=== PATIENT | male | born 1970 | race Caucasian/White ===

== ENCOUNTER 2016-10-10 14:06 | Emergency (ER) | payer SELFPAY ==
[~2016-10-10] VITALS: Ht 180.3 cm; Wt 82.0 kg
[~2016-10-10 14:06] MED LIST: ALBU17I INH; CEFT500T PO; PRED10PA PO; ZITH500T PO
[2016-10-10 14:07] VITALS: BP 134/86; PULSE 87; RESP 16; TEMP 98.7; O2SAT 96
--- NOTE | 2016-10-10 14:12 | PD ---
Physical Exam Date Seen by Provider: Oct 10, 2016 Time Seen by Provider: 14:11 Narrative 46 yo male here for upper back pain. Has had this since heavy lifting. Pain is 10/10. Went to [facility] and pain no improvement. Taking Valium and Tramadol. No new injury. Vitals are stable in triage. Awaiting bed placement. Data Data Last Documented VS Vital Signs Date Time Temp Pulse Resp B/P (MAP) Pulse Ox O2 Delivery O2 Flow Rate FiO2 10/10/16 14:07 98.7 87 16 134/86 (102) 96 MDM Medical Record Reviewed: Yes Supervised Visit with EDUARDO: No Nick Florian Oct 10, 2016 14:12
[2016-10-10] MEDS ORDERED: KETOROLAC TROMETHAMINE 60 MG/2 ML (IM) VIAL IM ONE (17:30)
[2016-10-10] MEDS ORDERED: predniSONE 20 MG TAB PO ONE (17:30)
[2016-10-10] MEDS ORDERED: PRED20 PO (17:43)
[2016-10-10] MEDS ORDERED: HYDR-3533 PO (17:43)
[2016-10-10] MEDS ORDERED: CYCL1TAB29 PO (17:43)
--- NOTE | 2016-10-10 17:51 | PD ---
HPI Chief Complaint: Back/ Neck Pain or Injury Time Seen by Provider: 17:13 Travel History International Travel<30 days: No Contact w/Intl Traveler<30days: No Traveled to known affect area: No History of Present Illness HPI 46-year-old male presents to the emergency Department with reported injury to the lower thoracic spine secondary to lifting something heavy last week 6 days ago. Patient states he tried to work through it but reinjured it over the weekend moving a sofa. He then missed work on Saturday secondary to the pain and then was seen at [facility] in [place], and had x-rays and placed on Valium and Ultram with worsening symptoms with pain spreading from the lower thoracic into the lumbar region. Patient denies numbness, tingling, or weakness in the lower extremities. Patient has no known drug allergies. PFSH Past Medical History Asthma: Yes Anxiety: Yes Cancer: No Cardiovascular Problems: No Endocrine: No Immune Disorder: No Musculoskeletal: Yes Neurologic: Yes Psychiatric: Yes Respiratory: Yes Social History Alcohol Use: Yes Tobacco Use: Yes Substance Use: Yes Allergies-Medications (Allergen,Severity, Reaction): Coded Allergies: No Known Allergies (Verified , 10/10/16) Reported Meds & Prescriptions Reported Meds & Active Scripts Active Flexeril (Cyclobenzaprine HCl) 10 Mg Tab 10 Mg PO TID Lortab (Hydrocodone-Acetaminophen) 5-325 Mg Tab 1 Tab PO Q6H PRN Prednisone 20 Mg Tab 20 Mg PO BID 7 Days Reported Prednisone 10 Mg Anders 20 Mg PO DAILY 3 Days 20mg daily x 3 days, then 10mg daily x 3 days Proventil Mdi (Albuterol Sulfate) 17 Gm Aero 2 Puff INH Q4HPRN Ceftin (Cefuroxime Axetil) 500 Mg Tab 500 Mg PO BID Zithromax (Azithromycin) 500 Mg Tab 500 Mg PO DAILY 5 Days Review of Systems Except as stated in HPI: all other systems reviewed are Neg General / Constitutional: No: Fever Eyes: No: Visual changes HENT: No: Headaches Cardiovascular: No: Chest Pain or Discomfort Respiratory: No: Shortness of Breath Gastrointestinal: No: Abdominal Pain Genitourinary: No: Dysuria Musculoskeletal: No: Pain Skin: No Rash Neurologic: No: Weakness Psychiatric: No: Depression Endocrine: No: Polydipsia Hematologic/Lymphatic: No: Easy Bruising Physical Exam Narrative GENERAL: Patient appears in mild to moderate distress with ability to ambulate to the room noted. SKIN: Warm and dry. Normal color. Normal turgor. No rash. HEAD: Atraumatic. Normocephalic. EYES: Pupils equal and round. No scleral icterus. No injection or drainage. ENT: No nasal bleeding or discharge. Mucous membranes pink and moist. Pharynx is clear. NECK: Trachea midline. Supple and nontender. CARDIOVASCULAR: Regular rate and rhythm. RESPIRATORY: No accessory muscle use. Clear to auscultation. Breath sounds equal bilaterally. Patient has generalized soft tissue tenderness along the lower thoracic upper lumbar spine. He is in the lower extremity. Deep tendon reflexes are 2+ and equal in both patellar and Achilles tendon. Patient is able to dorsiflex and plantar flex without difficulty. Straight leg raise pain is negative bilaterally while the patient is somewhat stiff. GASTROINTESTINAL: Abdomen soft, non-tender, nondistended. Hepatic and splenic margins not palpable. MUSCULOSKELETAL: Extremities without clubbing, cyanosis, or edema. No obvious deformities. NEUROLOGICAL: Awake and alert. No obvious cranial nerve deficits. Motor grossly within normal limits. Five out of 5 muscle strength in the arms and legs. Normal speech. PSYCHIATRIC: Appropriate mood and affect; insight and judgment normal. Data Data Last Documented VS Vital Signs Date Time Temp Pulse Resp B/P (MAP) Pulse Ox O2 Delivery O2 Flow Rate FiO2 10/10/16 14:07 98.7 87 16 134/86 (102) 96 Orders Orders Ketorolac Inj (Toradol Inj) (10/10/16 17:30) Prednisone (Deltasone) (10/10/16 17:30) [facility] Medical Decision Making Medical Screen Exam Complete: Yes Emergency Medical Condition: Yes Differential Diagnosis Thoracic strain. Muscle spasm. Spinal stenosis. Possible disc herniation. Narrative Course Patient is felt to be medically stable at time of exam. Repeat x-rays or not felt warranted at this time. Patient is treated with Toradol 60 mg IM as well as prednisone 60 mg by mouth. Patient is continued on prednisone 20 mg twice a day 7 days. Patient is also given Flexeril 10 mg every 8 hours for the next 10 days when necessary. Patient is given Lortab 5/325 one every 6 hours when necessary pain #12. A mandatory referrals placed for Dr. Martell, the neurosurgeon cardiac catheterization technologist for follow- up if symptoms do not improve or worsen as discussed. Patient can always return to emergency Department with worsening symptoms if necessary. Diagnosis Primary Impression: Acute thoracic myofascial strain Qualified Codes: S29.019A - Strain of muscle and tendon of unspecified wall of thorax, initial encounter Referrals: Kevin Martell MD Patient Instructions: General Instructions, Lower Back Exercises (ED), Thoracic Back Strain (ED), Upper Back Exercises (GEN) Additional Instructions: Patient is felt to be medically stable at time of exam. Repeat x-rays or not felt warranted at this time. Patient is treated with Toradol 60 mg IM as well as prednisone 60 mg by mouth. Patient is continued on prednisone 20 mg twice a day 7 days. Patient is also given Flexeril 10 mg every 8 hours for the next 10 days when necessary. Patient is given Lortab 5/325 one every 6 hours when necessary pain #12. A mandatory referrals placed for Dr. Martell, the neurosurgeon cardiac catheterization technologist for follow- up if symptoms do not improve or worsen as discussed. Patient can always return to emergency Department with worsening symptoms if necessary. Med/Other Pt SpecificInfo: Prescription(s) given Scripts Cyclobenzaprine (Flexeril) 10 Mg Tab 10 MG PO TID for Muscle Spasm, #30 TAB 0 Refills Prov: Lei Machuca MD 10/10/16 Hydrocodone-Acetaminophen (Lortab) 5-325 Mg Tab 1 TAB PO Q6H Y for PAIN, #12 TAB 0 Refills Prov: Lei Machuca MD 10/10/16 Prednisone (Prednisone) 20 Mg Tab 20 MG PO BID for 7 Days, TAB 0 Refills Prov: Lei Machuca MD 10/10/16 Disposition: 01 DISCHARGE HOME Condition: Stable David Velasquez Oct 10, 2016 17:51
== END 2016-10-10 18:54 | disposition home or self-care (01) ==
LOC: NEPD 14:06
DX: S29.019A Strain of muscle and tendon of unspecified wall of thorax, initial encounter (principal); J45.909 Unspecified asthma, uncomplicated; F41.9 Anxiety disorder, unspecified; Z72.0 Tobacco use; Z79.899 Other long term (current) drug therapy; X50.0XXA Overexertion from strenuous movement or load, initial encounter
CPT/HCPCS: 96372; 99284; J1885; J7512